=== PATIENT | female | born 2005 | race Two or more races ===

== ENCOUNTER 2024-03-08 13:23 | Emergency (ER) | payer BC ==
[~2024-03-08] VITALS: Ht 162.6 cm; Wt 72.6 kg
[2024-03-08] MEDS ORDERED: ACET1TAB23 PO ×2 (15:19→15:22)
[2024-03-08 15:33] VITALS: BP 105/54; O2SAT 98
== END 2024-03-08 15:34 | disposition home or self-care (01) ==
LOC: ER 13:23
DX: B34.9 Viral infection, unspecified (principal); J45.909 Unspecified asthma, uncomplicated; Z88.0 Allergy status to penicillin
CPT/HCPCS: A4606; A4663